=== PATIENT | male | born 1965 | race Asian ===

== ENCOUNTER 2019-09-21 10:47 | Emergency (ER) | payer MEDICARE, MEDICAID ==
[~2019-09-21] VITALS: Ht 154.9 cm; Wt 63.6 kg
[2019-09-21] MEDS ORDERED: ACET-2247 PO (10:52)
[2019-09-21] MEDS ORDERED: CEPHALEXIN MONOHYDRATE 500 MG CAPSULE PO ONE (11:45)
[2019-09-21] MEDS ORDERED: IBUPROFEN 400 MG TABLET PO ONE (11:45)
[2019-09-21] MEDS ORDERED: GELATIN SPONGE,ABSORBABLE 12-7 MM TP ONE (11:45)
[2019-09-21] MEDS ORDERED: PERTUSS(ACELL),DIPH,TET VAC/PF 0.5 ML VIAL IM ONE (11:45)
[2019-09-21] MEDS ORDERED: ACETAMINOPHEN 500 MG TABLET PO ONE (11:45)
[2019-09-21] MEDS ORDERED: GENTAMICIN 80 MG/NACL ISO-OSM 50 ML IV ONE (13:00)
[2019-09-21] MEDS ORDERED: CeFAZolin 2 GM/DEXTROSE 50 ML IV ONE (13:00)
[2019-09-21 15:39] VITALS: BP 123/72
== END 2019-09-21 15:41 | disposition home or self-care (01) ==
LOC: EMS 10:49
DX: S62.631B Displaced fracture of distal phalanx of left index finger, initial encounter for open fracture (principal); W45.8XXA Other foreign body or object entering through skin, initial encounter; Y93.89 Activity, other specified; Y92.89 Other specified places as the place of occurrence of the external cause; Y99.8 Other external cause status
CPT/HCPCS: 29125; 73140; 90471; 90715; 96365; 96368; 99284; J0690; J1580

== ENCOUNTER 2024-12-08 12:14 | Emergency (ER) | payer OTHER ==
[~2024-12-08 12:14] MED LIST: ACET-2247 PO
[2024-12-08 13:00] LABS: GLUCOMETER DEV NAME(LOC) ERT.7; GLUCOSE,POINT OF CARE 335 MG/DL (70-110)
[2024-12-08 13:05] LABS: PLATELET COUNT (AUTO) 190 K/uL (150-450); RED BLOOD CELL COUNT(AUTO) 4.90 MIL/uL (4.50-5.90); RED CELL DISTRIBUTION WIDTH 14.0 % (11.5-14.5); WHITE BLOOD COUNT (AUTO) 6.8 K/uL (4.5-11.0)
[2024-12-08 13:13] LABS: CALCIUM, TOTAL 9.2 mg/dL (8.8-10.5); CREATININE 0.98 mg/dL (0.60-1.30); GLOMERULAR FILTR. RATE CALC > 60 mL/min (>60); GLUCOSE,RANDOM 350 mg/dL (70-110); SODIUM SERUM 131 mmol/L (136-145); UREA NITROGEN, BLOOD 19 mg/dL (7-18)
[2024-12-08] MEDS: SODIUM CHLORIDE 0.9% 1,000 ML IV ONE ×2 (13:53→14:27)
[2024-12-08 14:31] LABS: TROPONIN I-HIGH SENSITIVITY 39 ng/L (<76)
[2024-12-08] MEDS: INSULIN REGULAR, HUMAN 100 UNITS/ML IVP ONE (14:31)
[2024-12-08 14:46] LABS: GLUCOMETER DEV NAME(LOC) ERT.7; GLUCOSE,POINT OF CARE 188 MG/DL (70-110)
[2024-12-08 14:53] VITALS: BP 119/79; PULSE 66; RESP 20; O2SAT 97
[2024-12-08] MEDS ORDERED: METF-1211 PO (15:50)
[2024-12-08 15:58] LABS: APPEARANCE,URINE CLEAR (CLEAR); GLUCOSE, URINE (UA) >=1000 mg/dL (NEGATIVE); LEUKOCYTE ESTERASE ,URINE NEGATIVE (NEGATIVE); NITRATE,URINE NEGATIVE (NEGATIVE); OCCULT BLOOD,URINE NEGATIVE (NEGATIVE); SPECIFIC GRAVITIY, URINE 1.009 (1.003-1.030)
[2024-12-08 16:07] LABS: SQUAMOUS EPITHELIAL CELL,UR Rare /LPF (None Seen)
== END 2024-12-08 16:10 | disposition home or self-care (01) ==
LOC: EMS 12:16
DX: E11.65 Type 2 diabetes mellitus with hyperglycemia (principal); R53.1 Weakness; I10 Essential (primary) hypertension; Z91.148 Patient's other noncompliance with medication regimen for other reason; Z91.119 Patient's noncompliance with dietary regimen due to unspecified reason
CPT/HCPCS: 71045; 80048; 81001; 82009; 82962; 84484; 85025; 93005; 99285; 36415-L1; 36415-TC